=== PATIENT | female | born 1980 | race African-American/Black ===

== ENCOUNTER 2016-07-04 08:33 | Emergency (ER) | payer OTHER ==
[~2016-07-04] VITALS: Ht 154.9 cm; Wt 63.5 kg
[~2016-07-04 08:33] MED LIST: DIFL150T PO; DOXY100; EC-N375T3 PO; FLAG500T PO; METR500I3 PO; PERC5TAB12 PO; PRENPAK OR
[2016-07-04 08:34] VITALS: BP 123/70; PULSE 68; RESP 16; TEMP 97.8; O2SAT 99
--- NOTE | 2016-07-04 09:08 | PD ---
HPI Chief Complaint: ENT Complaint Time Seen by Provider: 08:50 Travel History International Travel<30 days: No Contact w/Intl Traveler<30days: No Traveled to known affect area: No History of Present Illness HPI 36-year-old Afro-Citizen Of The [place] female presents the emergency department with pain in the left ear. Patient states she was cleaning her ear with a Q-tip and the tip came off in her ear. This happened just this morning. It is painful with a 6/ 10 pain scale. She denies drainage or bleeding. She denies any other symptoms. She has no known drug allergies. [facility] Past Medical History Headaches: Yes ?: Not LMP: 06/23/16 : 2 Para: 2 Social History Alcohol Use: No Tobacco Use: No Substance Use: No Allergies-Medications (Allergen,Severity, Reaction): Coded Allergies: No Known Allergies (Verified , 07/04/16) Reported Meds & Prescriptions Reported Meds & Active Scripts Active No Active Prescriptions or Reported Medications Review of Systems Except as stated in HPI: all other systems reviewed are Neg General / Constitutional: No: Fever Eyes: No: Visual changes HENT: No: Headaches Cardiovascular: No: Chest Pain or Discomfort Respiratory: No: Shortness of Breath Gastrointestinal: No: Abdominal Pain Genitourinary: No: Dysuria Musculoskeletal: No: Pain Skin: No Rash Neurologic: No: Weakness Psychiatric: No: Depression Endocrine: No: Polydipsia Hematologic/Lymphatic: No: Easy Bruising Physical Exam Narrative GENERAL: Patient is a no acute distress. SKIN: Warm and dry. Normal color. Normal turgor. HEAD: Atraumatic. Normocephalic. EYES: Pupils equal and round. No scleral icterus. No injection or drainage. ENT: No nasal bleeding or discharge. Mucous membranes pink and moist. Right ear is normal. Left ear shows cotton tip of the Q-tip in the ear canal. This was removed with alligator forceps without incident. TM is somewhat erythematous but otherwise unremarkable. No perforation noted. Patient's pharynx is normal. Airway is patent. NECK: Trachea midline. Supple and nontender. CARDIOVASCULAR: Regular rate and rhythm. RESPIRATORY: No accessory muscle use. Clear to auscultation. Breath sounds equal bilaterally. MUSCULOSKELETAL: Extremities without clubbing, cyanosis, or edema. No obvious deformities. NEUROLOGICAL: Awake and alert. No obvious cranial nerve deficits. Motor grossly within normal limits. Five out of 5 muscle strength in the arms and legs. Normal speech. PSYCHIATRIC: Appropriate mood and affect; insight and judgment normal. Data Data Last Documented VS Vital Signs Date Time Temp Pulse Resp B/P Pulse Ox O2 Delivery O2 Flow Rate FiO2 07/04/16 08:34 97.8 68 16 123/70 99 Room Air MDM Medical Decision Making Medical Screen Exam Complete: Yes Emergency Medical Condition: Yes Differential Diagnosis Foreign body left ear. Ear pain. TM perforation. Narrative Course Patient is medically stable at time of exam. Foreign body is removed easily with alligator forceps without difficulty. Patient symptoms improved. No further medical treatment is felt necessary at this time. Diagnosis Primary Impression: Acute foreign body of ear canal Qualified Code: T16.2XXA - Acute foreign body of ear canal, left, initial encounter Referrals: Primary Care Physician Patient Instructions: General Instructions Additional Instructions: Foreign body is removed easily with alligator forceps without difficulty. Patient symptoms improved. No further medical treatment is felt necessary at this time. Med/Other Pt SpecificInfo: No Meds Exist/No RX given Scripts No Active Prescriptions or Reported Meds Disposition: 01 DISCHARGE HOME Condition: Stable Bruce Raya Jul 04, 2016 09:08
== END 2016-07-04 09:16 | disposition home or self-care (01) ==
LOC: NEPB 08:33
DX: T16.2XXA Foreign body in left ear, initial encounter (principal); X58.XXXA Exposure to other specified factors, initial encounter; Y93.E8 Activity, other personal hygiene; Y92.9 Unspecified place or not applicable; Y99.9 Unspecified external cause status
CPT/HCPCS: 69200